=== PATIENT | male | born 1985 | race Caucasian/White ===

== ENCOUNTER 2018-05-26 11:14 | Emergency (ER) | payer MEDICAID, OTHER ==
[2018-05-26 11:32] VITALS: TEMP 98.7; O2SAT 98
[2018-05-26] MEDS ORDERED: Dexamethasone 4 mg/1 ml IM STA (12:21)
[2018-05-26] MEDS ORDERED: Lidocaine 5% Patch TD STA (12:21)
[2018-05-26] MEDS ORDERED: Dexamethasone 4 mg/1 ml ONE (12:30)
[2018-05-26] MEDS ORDERED: Lidocaine 5% Patch TD ONE (12:31)
[2018-05-26 12:42] LABS: URINE BILIRUBIN NEGATIVE (NEGATIVE); URINE BLOOD NEGATIVE (NEGATIVE); URINE CLARITY Clear (Clear); URINE COLOR Yellow (YELLOW); URINE GLUCOSE (UA) NORMAL (Normal); URINE LEUKOCYTE ESTERASE NEG Leu/uL (Negative); URINE PROTEIN 1+ mg/dL (NEGATIVE); URINE UROBILINOGEN NORMAL mg/dL (0.2-1.0)
--- NOTE | 2018-05-26 13:08 | RAD ---
Date of service: 05/26/2018 PROCEDURE: Radiographs of the Lumbar Spine. HISTORY: Lower back Pain. No history of recent/ related trauma provided COMPARISON: No prior. FINDINGS: BONES: Normal alignment. No listhesis. No fracture. DISC SPACES: Unremarkable. OTHER FINDINGS: None. IMPRESSION: Unremarkable radiographs of the lumbar spine.
--- NOTE | 2018-05-26 13:50 | C.PDOC ---
History Of Present Illness 32 year old male patient presents to the ER with c/o back pain. Patient states that x1 week ago patient was carrying water containers awkwardly and his back started hurting. 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 Patient states pain is in his right back that radiates to his posterior leg. Patient denies any urinary symptoms and leg numbness. Time Seen by Provider: 05/26/18 11:43 Chief Complaint (Nursing): Back Pain History Per: Patient History/Exam Limitations: no limitations Onset/Duration Of Symptoms: Days (x1 week) Current Symptoms Are (Timing): Still Present Quality Of Discomfort: "Pain" Past Medical History Reviewed: Historical Data, Nursing Documentation, Vital Signs Vital Signs: Last Vital Signs Temp 98.7 F 05/26/18 11:30 Pulse 78 05/26/18 14:12 Resp 16 05/26/18 14:12 BP 128/85 05/26/18 14:12 Pulse Ox 98 05/26/18 15:23 Family History: States: No Known Family Hx - Social History Hx Alcohol Use: No Hx Substance Use: No - Immunization History Hx Tetanus Toxoid Vaccination: No Hx Influenza Vaccination: No Hx Pneumococcal Vaccination: No Review Of Systems Except As Marked, All Systems Reviewed And Found Negative. Genitourinary: Negative for: Dysuria, Frequency, Incontinence, Hematuria Musculoskeletal: Positive for: Back Pain (right), Leg Pain (posterior) Neurological: Negative for: Numbness (leg) Physical Exam - Physical Exam Appears: Well, Non-toxic, No Acute Distress Skin: Normal Color, Warm, Dry Head: Atraumatic, Normacephalic Eye(s): bilateral: Normal Inspection Chest: Symmetrical, No Deformity, No Tenderness Cardiovascular: Rhythm Regular Respiratory: Normal Breath Sounds Gastrointestinal/Abdominal: Soft, No Tenderness Back: No CVA Tenderness, No Vertebral Tenderness, Decreased ROM (due to pain), Paraspinal Tenderness (right), Straight Leg Raising (+straight leg raising @ 60 degrees) Extremity: Tenderness (right posterior thigh ), No Calf Tenderness, Capillary Refill (<2 sec), No Deformity, No Swelling Extremity: Bilateral: Atraumatic Pulses: Left Dorsalis Pedis: Normal, Right Dorsalis Pedis: Normal Neurological/Psych: Oriented x3, Normal Speech, Normal Motor, Normal Sensation, Normal Reflexes Disoriented To: Person ED Course And Treatment O2 Sat by Pulse Oximetry: 98 (RA) Pulse Ox Interpretation: Normal - Other Rad XR LS Spine X-Ray: Read By Radiologist Interpretation: Accession No. : [id number]. Patient Name / ID : CESAR KNIGHT / [id number]. Exam Date : 05/26/2018 12:41:30 ( Approved ). Study Comment : Sex / Age : M / 32Y. Creator : Bjorn Hoff MD. Dictator : Bjorn Hoff MD. Tax Auditor : Data Capture Specialist : Bjorn Hoff MD. Approver2 : Report Date : 05/26/2018 13:07:13. My Comment : . Date of service: 05/26/2018. PROCEDURE: Radiographs of the Lumbar Spine. HISTORY: Lower back Pain. No history of recent/ related trauma provided. COMPARISON: No prior. FINDINGS: BONES: Normal alignment. No listhesis. No fracture. DISC SPACES: Unremarkable. OTHER FINDINGS: None. IMPRESSION: Unremarkable radiographs of the lumbar spine. Progress Note: Impression: right back pain radiating to the posterior leg. Plan : -- Decadron. -- lidoderm. -- toradol. -- valium. -- XR LS spine. -- UA. Reassess: Patient is resting comfortably. Tolerating PO. Patient states he feels better. Patient is ambulatory. No neuro deficit. Patient will be discharged home. Patient is advised to f/u with PCP and to come back if condition worsen. Disposition - Disposition Disposition: HOME/ ROUTINE Disposition Time: 13:49 Condition: IMPROVED Additional Instructions: Follow up with your PMD within 1-2 days. Return to ED if feel worse. Prescriptions: Lidocaine 5% [Lidoderm] 1 patch TP DAILY #30 patch Methylprednisolone [Medrol] 4 mg PO DAILY #42 tab Naproxen [Naprosyn] 1 tab PO BID PRN #25 tab PRN Reason: Pain Methocarbamol [Robaxin-750] 750 mg PO QID #28 tab Instructions: Low Back Pain in Adults, Radiculopathy Forms: [facility] (Slovak), Work Excuse - Clinical Impression Clinical Impression: Lumbar radiculopathy, acute - PA / CAR DRYER / Resident Statement MD/DO has reviewed & agrees with the documentation as recorded. - Scribe Statement The provider has reviewed the documentation as recorded by the Scribe Veronica Ritter All medical record entries made by the Scribe were at my direction and personally dictated by me. I have reviewed the chart and agree that the record accurately reflects my personal performance of the history, physical exam, medical decision making, and the department course for this patient. I have also personally directed, reviewed, and agree with the discharge instructions and disposition.
[2018-05-26 14:13] VITALS: BP 128/85; PULSE 78; RESP 16
== END 2018-05-26 14:11 | disposition home or self-care (01) ==
LOC: C.ER 11:14
DX: M54.16 Radiculopathy, lumbar region (principal)
CPT/HCPCS: 72100; 81001; 96372; 99283; J1100; J1885